=== PATIENT | female | born 1940 | race Caucasian/White ===

== ENCOUNTER → 2025-02-16 15:11 | Outpatient (REF) | payer MEDICARE, BC, SELFPAY | LOC: RCS 15:11 | PROVIDERS: ATTENDING PHYSICIAN Internal Medicine Cardiovascular Disease | DX: I42.8 Other cardiomyopathies (principal); R06.09 Other forms of dyspnea; I10 Essential (primary) hypertension; I25.10 Atherosclerotic heart disease of native coronary artery without angina pectoris; E78.00 Pure hypercholesterolemia, unspecified; I34.0 Nonrheumatic mitral (valve) insufficiency | CPT/HCPCS: 93306 ==

== ENCOUNTER → 2025-02-17 07:53 | Outpatient (REF) | payer MEDICARE, BC, SELFPAY | LOC: HWRCS 07:53 | PROVIDERS: ATTENDING PHYSICIAN Internal Medicine Cardiovascular Disease; FAMILY PHYSICIAN Family Medicine | DX: I42.8 Other cardiomyopathies (principal); R06.09 Other forms of dyspnea; I10 Essential (primary) hypertension; I25.10 Atherosclerotic heart disease of native coronary artery without angina pectoris; E78.00 Pure hypercholesterolemia, unspecified; I34.0 Nonrheumatic mitral (valve) insufficiency | CPT/HCPCS: 78452; 93017; A9500; J2785 ==

== ENCOUNTER → 2025-03-01 08:55 | Outpatient (REF) | payer MEDICARE, BC, SELFPAY | LOC: RAD 08:55 | PROVIDERS: ATTENDING PHYSICIAN Internal Medicine Cardiovascular Disease | DX: I42.8 Other cardiomyopathies (principal); Z87.09 Personal history of other diseases of the respiratory system; R06.09 Other forms of dyspnea | CPT/HCPCS: 71275; Q9967 ==